=== PATIENT | female | born 2000 | race Caucasian/White ===

== ENCOUNTER 2022-12-10 10:00 | Emergency (ER) | payer SELFPAY ==
--- NOTE | ~2022-12-10 | CT_ITS ---
EXAMINATION: CT brain wo con DATE: 12/10/2022 10:43 INDICATION: Headache post seizure with head injury TECHNIQUE: Computed tomography (CT) of the head was performed without intravenous contrast. Sagittal and coronal reconstructions were performed. The mA was adjusted according to patient size. Iterative reconstruction technique was employed. The dose-length product was 605.33 mGy-cm. COMPARISON: None FINDINGS: No fracture. No acute intracranial hemorrhage, acute infarction or abnormal extra axial fluid collect ion. Ventricles are normal and symmetric. No mass/mass effect. The orbits, paranasal sinuses and mast oid air cells are normal. IMPRESSION: 1. Normal head CT. Reviewed, dictated and finalized at location B. IMPRESSION: 1. Normal head CT.
[2022-12-10 10:16] VITALS: BP 123/82; PULSE 85; RESP 20; TEMP 36.7; O2SAT 99
[2022-12-10 10:22] VITALS: O2SAT 99
--- NOTE | 2022-12-10 10:24 | ED.GENADULT ---
HPI - General Adult General Chief complaint: Syncope Stated complaint: ambulance Time Seen by Provider: 12/10/22 10:17 History of Present Illness HPI narrative: The patient is a 22-year-old woman with a history of seizures diagnosed in 2019, previously hospitalized most recently 1 year ago for seizures. She currently takes Keppra 250 mg p.o. b.i.d. but has missed several doses over the last several days. She has not taken her dose for today yet, did take 2 doses yesterday, but only 1 dose the day before and has missed doses before that in the last week. Last mini seizure was yesterday morning that was of short duration. No other comorbidities. She was cleaning a mouse cage were by the mouse bit her on the left index finger. She went to clean her hand in the bathroom whereby she had a seizure, struck her head on the tub. She was postictal afterwards with some confusion. Does complain of a headache. She did bite her cheek but not her tongue. Does complain of nausea. No motor sensory deficits. No vomiting. Mild headache. No loss of bladder or bowel function. Brought here by EMS after IV access was established. Accu-Chek by EMS was 86. She feels better now. She is back to baseline in terms of her mental status. No other complaints. Related Data Home Medications Medication Instructions Recorded Confirmed levetiracetam 250 mg tablet 250 mg PO BID 12/10/22 12/10/22 (Keppra) naproxen 500 mg tablet 500 mg PO BID 12/10/22 12/10/22 Allergies Allergy/AdvReac Type Severity Reaction Status Date / Time No Known Allergies Allergy Verified 12/10/22 10:16 Review of Systems Review of Systems: All systems reviewed & are unremarkable except as noted in HPI and below Constitutional: Constitutional: Reports as per HPI, Reports no additional constitutional complaints, Denies chills, Denies excessive sweating, Denies fatigue, Denies fever(s), Reports headache(s) and Denies weakness Eyes: Eyes: Reports as per HPI, Reports no additional eye complaints, Denies change in vision and Denies photophobia ENT: Reports system reviewed and no additional complaints, except as documented, Reports as per HPI, Denies dysphagia, Denies vertigo, Denies dizziness, Reports headache(s), Denies lip swelling, Denies nasal congestion, Denies sore throat, Denies throat swelling and Denies tongue swelling Cardiovascular: Cardiovascular: Reports as per HPI, Reports no additional cardiovascular complaints, Denies chest pain, Reports syncope, Denies rapid heart rate and Denies dyspnea Respiratory: Respiratory: Reports as per HPI, Reports no additional respiratory complaints, Denies chest congestion, Denies cough, Denies dyspnea and Denies wheezing Gastrointestinal: Gastrointestinal: Reports as per HPI, Reports no additional gastrointestinal complaints, Denies abdominal pain, Denies constipation, Denies dysphagia, Denies diarrhea, Reports nausea and Denies vomiting Genitourinary: Genitourinary: Reports as per HPI, Denies hematuria, Denies urinary frequency, Denies dysuria, Denies urinary incontinence and Denies urinary urgency Musculoskeletal: Musculoskeletal: Reports no additional musculoskeletal complaints, Denies back pain, Denies myalgias, Denies arthralgias, Denies joint swelling and Denies numbness Integumentary/Breasts: Skin/Breast: Reports system reviewed and no additional complaints, except as docu, Denies pruritus, Denies erythema, Denies rash and Denies skin ulcer Neurologic: Reports system reviewed and no additional complaints, except as documented, Reports as per HPI, Denies confusion, Denies vertigo, Denies dizziness, Reports syncope, Denies frequent falls, Reports headache(s), Denies focal weakness, Denies numbness, Denies restless legs, Reports convulsions, Denies paresthesias, Denies tremor(s), Denies disequilibrium and Denies weakness Psychiatric: Psychiatric: Reports as per HPI, Denies anxiety, Denies confusion, Denies depression, Denies homicidal id
[2022-12-10] MEDS: SODIUM CHLORIDE 0.9% IV 1,000 ML 999 ML IV CONT (10:42)
[2022-12-10] MEDS: levETIRAcetam 1000MG/NACL100ML 1,000 MG/100 ML BAG 400 MG IVPB (10:43)
[2022-12-10] MEDS: ONDANSETRON INJ 4 MG/2 ML VIAL IV PUSH (10:43)
[2022-12-10 10:55] LABS: Basophils Absolute Auto 0.04 K/mm3 (0.00-0.10); Basophils Percent Auto 0.6 % (0.0-1.0); Eosinophils Absolute Auto 0.19 K/mm3 (0.02-0.50); Eosinophils Percent Auto 2.7 % (1.0-6.0); Hematocrit 36.5 % (35.0-49.0); Hemoglobin 11.8 g/dL (12.0-15.0); Immature Granulocyte Absolute 0.02 K/mm3 (0.00-0.00); Immature Granulocyte Percent A 0.3 % (0.0-0.0); Lymphocytes Absolute Auto 1.63 K/mm3 (1.10-4.50); Lymphocytes Percent Auto 23.5 % (18.0-42.0); Mean Corpuscular HGB Conc 32.3 g/dL (32.0-36.0); Mean Corpuscular Hemoglobin 26.8 pg (27.0-31.0); Mean Platelet Volume 9.4 fl (9.2-11.8); Monocytes Absolute Auto 0.58 K/mm3 (0.10-0.90); Monocytes Percent Auto 8.4 % (2.0-11.0); Neutrophils Absolute Auto 4.5 K/mm3 (1.7-7.2); Neutrophils Percent Auto 64.5 % (50.0-70.0); Platelet Count Result 291 K/mm3 (150-420); Red Cell Distribution Width 14.2 % (11.6-14.4); White Blood Count 6.9 K/mm3 (4.8-10.8)
[2022-12-10 11:22] LABS: Alanine Aminotransferase 17 U/L (14-59); Albumin Level 3.8 g/dL (3.4-5.0); Alkaline Phosphatase 70 U/L (46-116); Anion Gap 11 mmol/L (8-16); Aspartate Amino Transferase 11 U/L (15-37); Bilirubin,Total 0.4 mg/dL (0.00-1.00); Blood Urea Nitrogen 9 mg/dL (7-18); Calcium 8.5 mg/dL (8.5-10.1); Carbon Dioxide 24 mmol/L (21-32); Chloride 106 mmol/L (98-108); Estimated CRCL calculation 101 ml/min; Estimated Glomerular Filt Rate > 60; Ethanol < 3 mg/dL (0-6); Glucose 86 mg/dL (70-99); Osmolality Calculated 289 mOsm/kg (285-295); Potassium 3.9 mmol/L (3.5-5.1); Sodium 141 mmol/L (136-145); Total Protein 7.5 g/dL (6.4-8.2)
[2022-12-10 12:16] LABS: Appearance Urine Clear (Clear); Bilirubin Urine Negative (Negative); Blood Urine Trace-Intact (Negative); Color Urine Light Yellow (Yellow); Glucose Urine UA Negative (Negative); Ketones Urine Negative (Negative); Leukocyte Esterase Ur Trace LEU/UL (Negative); Nitrate Urine Negative (Negative); Protein Urine Negative (Negative); Urobilinogen Urine 0.2 mg/dL (0.2-1.0)
[2022-12-10 12:23] LABS: Add Urine Microscopic? YES; RBC Urine 0-2 /hpf (0-2); Squamous Epithelial Cell Urine Few /hpf (Few); WBC Urine 0-3 /hpf (0-3)
[2022-12-10 12:24] LABS: Bacteria Urine Trace /hpf
[2022-12-10 12:28] LABS: Pregnancy On Board Control Positive; Urine Pregnancy Test Negative
[2022-12-10 12:31] LABS: Amphetamine Screen Urine Negative (Negative); Barbiturate Screen Urine Negative (Negative); Benzodiazepines Screen Urine Negative (Negative); Cannabinoid Screen Urine Negative (Negative); Cocaine Screen Urine Negative (Negative); Methadone Screen Urine Negative (Negative); Opiate Screen Urine Negative (Negative); Phencyclidine Screen Urine Negative (Negative)
[2022-12-10 13:30] VITALS: BP 105/66; PULSE 72; RESP 20; TEMP 36.7; O2SAT 96
== END 2022-12-10 13:37 | disposition home or self-care (01) ==
PROVIDERS: Emergency Provider Emergency Medicine; PCP Family Medicine
DX: G40.909 Epilepsy, unspecified, not intractable, without status epilepticus (principal); Z91.14 Patient's other noncompliance with medication regimen; Z79.899 Other long term (current) drug therapy; W22.09XA Striking against other stationary object, initial encounter
CPT/HCPCS: 36415; 70450; 80053; 80307; 81001; 81025; 85025; 96361; 96365; 96375; 99284; J1953; J2405; J7030

== ENCOUNTER 2023-02-04 09:10 | Outpatient (CLI) | payer SELFPAY ==
[2023-02-04 09:24] LABS: Hemoglobin 11.8 g/dL (12.0-15.0); Mean Corpuscular HGB Conc 32.8 g/dL (32.0-36.0); Mean Corpuscular Hemoglobin 27.1 pg (27.0-31.0); Mean Corpuscular Volume 82.8 fL (78.0-102.0); Mean Platelet Volume 9.1 fl (9.2-11.8); Platelet Count Result 296 K/mm3 (150-420); Red Blood Count 4.35 M/mm3 (4.20-5.40); Red Cell Distribution Width 13.6 % (11.6-14.4); White Blood Count 5.6 K/mm3 (4.8-10.8)
[2023-02-04 09:54] LABS: Alanine Aminotransferase 27 U/L (14-59); Albumin Level 3.7 g/dL (3.4-5.0); Alkaline Phosphatase 70 U/L (46-116); Anion Gap 9 mmol/L (8-16); Aspartate Amino Transferase 20 U/L (15-37); Bilirubin,Total 0.6 mg/dL (0.00-1.00); Blood Urea Nitrogen 5 mg/dL (7-18); Calcium 8.9 mg/dL (8.5-10.1); Carbon Dioxide 26 mmol/L (21-32); Chloride 105 mmol/L (98-108); Estimated Glomerular Filt Rate > 60; Glucose 102 mg/dL (70-99); Osmolality Calculated 287 mOsm/kg (285-295); Sodium 140 mmol/L (136-145)
[2023-02-08 10:11] LABS: Levetiracetam Keppra <2.0 mcg/mL (6.0-46.0)
== END 2023-02-04 09:11 | disposition home or self-care (01) ==
LOC: CHSLAB 09:12
PROVIDERS: PCP Nurse Practitioner Family; Visit Provider Nurse Practitioner Family
DX: G40.909 Epilepsy, unspecified, not intractable, without status epilepticus (principal)
CPT/HCPCS: 36415; 80053; 80177; 85027

== ENCOUNTER 2023-03-05 10:00 | Emergency (ER) | payer BC, SELFPAY ==
[2023-03-05] VITALS (7 sets, daily range): BP systolic 105–121; BP diastolic 69–92; PULSE 68–95; RESP 14–18; TEMP 36.8–37.4; O2SAT 98–99
--- NOTE | 2023-03-05 10:18 | ED.GENADULT ---
HPI - General Adult General Chief complaint: Nausea/Vomiting/Diarrhea Stated complaint: panic attack; vomiting Time Seen by Provider: 03/05/23 10:16 Source: patient Mode of arrival: ambulatory Limitations: no limitations History of Present Illness HPI narrative: 23-year-old white female started nausea vomiting diarrhea as loose watery nonbloody stools since last night. He attempted to walk to work and today anyway and threw up on the way to work and then had a panic attack. Was brought in by EMS blood pressure was 111/69 O2 sat was 96% room air pulse 108 respirations 20. she had loose watery stools 5-6 last 24 hours and vomited about 7 Times 1st food then just yellow liquid. Denies any fever shortness of breath cough runny nose rash or itching bleeding or bruising swelling lumps or bumps problems walking talking seeing or hearing. Denies any other complaints. Related Data Allergies Allergy/AdvReac Type Severity Reaction Status Date / Time lavender AdvReac Intermediate Itching Uncoded 03/05/23 10:18 Review of Systems Review of Systems: All systems reviewed & are unremarkable except as noted in HPI and below PMFSH Past Medical History Medical History Recurrent seizures Surgical History Surgical History Hx of tonsillectomy Family History Family History Mother Hypertension Asthma Grandparent Cerebrovascular accident patient reports two strokes Grandparent Hypertension Social History Social History Social History: Quit smoking cigarettes 3 years now Smoking packs per day: 2 Smoking cigarettes per day: 40.0 Years smoked: 3 Smoking pack-years: 6.00 Smoking status: Light tobacco smoker (pt reports she smoked a cigarette the other day) Tobacco type: cigarettes Second hand tobacco smoke exposure: No Smoking end date: 02/04/20 Alcohol intake: former Alcohol use details: Last drink 5.5 months back Substance use: current Other substance usage details: marijuana - smoke it occassionally Living arrangements: other Additional living arrangements comments: with boyfriend Occupation/Education: occupation Additional occupation/education comments: [employer] Gender identity (if verbalized by the patient): Female Sexual Orientation (if Verbalized by the Patient): Straight or Heterosexual Exam Narrative: White female no apparent distress. ?Head:? Normocephalic atraumatic.? Eyes conjunctiva pink sclera nonicteric.? Ears TMs are normal.? Oropharynx is clear with moist mucous membranes no exudates.? Neck is supple no lymphadenopathy nontender full range of motion.? Back is nontender.? Chest nontender.? Lungs are clear without wheezes rales or rhonchi.? Heart is regular rate rhythm without murmurs gallops or rubs.? Abdomen soft and nontender no hepatosplenomegaly or masses no CVA tenderness no abdominal bruits.? Extremities no cyanosis clubbing or edema.? Neurological she is alert and oriented x4 motor and sensory grossly intact.? Skin is warm and dry without lesions. Course Vital Signs Vital signs: Vital Signs Temperature 37.4 C 03/05/23 10:11 Pulse Rate 95 03/05/23 10:11 Respiratory Rate 18 03/05/23 10:11 Blood Pressure 121/92 H 03/05/23 10:11 Pulse Oximetry 99 03/05/23 10:11 Oxygen Delivery Room Air 03/05/23 10:11 Temperature 37.4 C 03/05/23 10:11 Pulse Rate 95 03/05/23 10:11 Respiratory Rate 18 03/05/23 10:11 Blood Pressure 121/92 H 03/05/23 10:11 Pulse Oximetry 99 03/05/23 10:11 Oxygen Delivery Room Air 03/05/23 10:11 Medical Decision Making MDM Narrative Medical decision making narrative: Independent Historian: EMS stated her blood pressure is 111/69 with pulse of 96 respirations 20
[2023-03-05] MEDS: LACTATED RINGERS 1,000 ML 999 ML IV CONT (10:28)
[2023-03-05] MEDS: ONDANSETRON HCL ODT 4 MG TABLET PO (10:28)
[2023-03-05 10:31] LABS: Hematocrit 38.3 % (35.0-49.0); Hemoglobin 12.4 g/dL (12.0-15.0); Mean Corpuscular HGB Conc 32.4 g/dL (32.0-36.0); Mean Corpuscular Volume 83.4 fL (78.0-102.0); Mean Platelet Volume 9.3 fl (9.2-11.8); Platelet Count Result 327 K/mm3 (150-420); Red Blood Count 4.59 M/mm3 (4.20-5.40); Red Cell Distribution Width 13.2 % (11.6-14.4); White Blood Count 5.9 K/mm3 (4.8-10.8)
[2023-03-05 10:34] LABS: Pregnancy On Board Control Positive; Urine Pregnancy Test Negative
[2023-03-05 10:47] LABS: Alanine Aminotransferase 25 U/L (14-59); Albumin Level 4.1 g/dL (3.4-5.0); Alkaline Phosphatase 78 U/L (46-116); Anion Gap 9 mmol/L (8-16); Aspartate Amino Transferase 22 U/L (15-37); Bilirubin,Total 0.4 mg/dL (0.00-1.00); Blood Urea Nitrogen 9 mg/dL (7-18); Calcium 9.5 mg/dL (8.5-10.1); Carbon Dioxide 28 mmol/L (21-32); Chloride 104 mmol/L (98-108); Estimated CRCL calculation 81 ml/min; Estimated Glomerular Filt Rate > 60; Glucose 95 mg/dL (70-99); Osmolality Calculated 290 mOsm/kg (285-295); Potassium 3.9 mmol/L (3.5-5.1); Sodium 141 mmol/L (136-145); Total Protein 7.8 g/dL (6.4-8.2)
[2023-03-05 10:59] LABS: Lipase 25 U/L (16-77)
== END 2023-03-05 12:55 | disposition home or self-care (01) ==
PROVIDERS: Emergency Provider Emergency Medicine; PCP Nurse Practitioner Family
DX: K52.9 Noninfective gastroenteritis and colitis, unspecified (principal); E86.9 Volume depletion, unspecified; F17.210 Nicotine dependence, cigarettes, uncomplicated
CPT/HCPCS: 36415; 80053; 81025; 83690; 85027; 96360; 96361; 99283; A9270; J7120

== ENCOUNTER 2023-03-12 14:10 | Outpatient (CLI) | payer BC, SELFPAY ==
[2023-03-12 15:08] LABS: Hemoglobin A1C 4.8 % (<5.7)
[2023-03-16 07:56] LABS: Levetiracetam Keppra <2.0 mcg/mL (6.0-46.0)
== END 2023-03-12 14:11 | disposition home or self-care (01) ==
LOC: CHSLAB 14:15
PROVIDERS: PCP Nurse Practitioner Family; Visit Provider Nurse Practitioner Family
DX: G40.909 Epilepsy, unspecified, not intractable, without status epilepticus (principal); R73.09 Other abnormal glucose
CPT/HCPCS: 36415; 80177; 83036

== ENCOUNTER 2023-03-15 11:05 | Outpatient (CLI) | payer BC, SELFPAY ==
[2023-03-15 11:42] LABS: Strep Group A RT-PCR NOT DETECTED (Negative)
[2023-03-15 11:50] LABS: Influenza A QL RT-PCR Negative (Negative); Influenza B QL RT-PCR Negative (Negative); SARS-CoV-2 RNA PCR Negative (Negative)
== END 2023-03-15 11:06 | disposition home or self-care (01) ==
LOC: CHSLAB 11:06
PROVIDERS: PCP Nurse Practitioner Family; Visit Provider Nurse Practitioner Family
DX: R05.9 Cough, unspecified (principal); Z20.822 Contact with and (suspected) exposure to COVID-19
CPT/HCPCS: 87636; 87651

== ENCOUNTER 2023-03-22 07:08 | Outpatient (CLI) | payer BC, SELFPAY ==
--- NOTE | ~2023-03-22 | XR_ITS ---
EXAMINATION: XR barium swallow DATE: 03/22/2023 10:03 INDICATION: Dysphagia TECHNIQUE: The patient drank thick barium, gas-producing crystals, and thin barium. Fluoroscopy of th e hypopharynx and esophagus was performed. Fluoroscopy exposure time was 1.2 minutes. The DAP for thi s procedure was 5.755 Gycm2. COMPARISON: None. FINDINGS: There is no mass or stricture of the esophagus. Esophageal motility is normal. There is no hiatal hernia. There was no gastroesophageal reflux with provocative maneuvers. IMPRESSION: 1. Unremarkable esophagram. Reviewed, dictated and finalized at location L. IMPRESSION: 1. Unremarkable esophagram.
== END 2023-03-22 07:09 | disposition home or self-care (01) ==
LOC: CHSIMG 07:10
PROVIDERS: PCP Nurse Practitioner Family; Visit Provider Nurse Practitioner Family
DX: R13.10 Dysphagia, unspecified (principal)
CPT/HCPCS: 74220